=== PATIENT | female | born 1955 | race Caucasian/White ===

== ENCOUNTER 2021-10-04 13:13 | Outpatient (CLI) | payer MEDICARE ==
[2021-10-04 15:31] LABS: Hemoglobin 12.9 g/dL (12.0-15.5); Mean Corpuscular HGB CONC 33.7 g/dL (32.0-36.0); Mean Corpuscular Hemoglobin 31.4 pg (27.0-33.0); Mean Corpuscular Volume 93.2 fl (81.6-98.3); Mean Platelet Volume 9.3 fl (7.4-10.4); Platelet Count 246 10x3/uL (150-450); RBC Distribution Width 12.5 % (11.5-14.5); Red Blood Cell (RBC) Count 4.11 10x6/uL (3.90-5.03); White Blood Cell (WBC) Count 6.9 10x3/uL (3.5-10.5)
[2021-10-04 15:40] LABS: INR-International Normal Ratio 0.9; PTT 27.4 sec (22.0-33.0); Prothrombin Time 10.5 sec (9.5-12.1)
[2021-10-04 15:45] LABS: Anion Gap 14 mmol/L (10-20); BUN (Urea Nitrogen) 21 mg/dL (9.8-20.1); Calc. Creatinine Clearance 0 mL/min (70-130); Carbon Dioxide 27 mmol/L (23-31); Chloride 104 mmol/L (98-107); Glucose 90 mg/dL (80-115); Potassium 3.9 mmol/L (3.5-5.1); Sodium 141 mmol/L (136-145)
[2021-10-05 00:46] LABS: SARS-CoV-2 PCR by NAA Not Detected (NotDetected)
== END 2021-10-04 13:14 | disposition home or self-care (01) ==
LOC: CSHLAB 13:13
PROVIDERS: ATTEND Orthopaedic Surgery
DX: Z01.818 Encounter for other preprocedural examination (principal); Z20.822 Contact with and (suspected) exposure to COVID-19; Z98.890 Other specified postprocedural states; Z86.19 Personal history of other infectious and parasitic diseases; Z96.652 Presence of left artificial knee joint
CPT/HCPCS: 80048; 85027; 85610; 85730; 87081; 93005; 93010; U0003; U0005

== ENCOUNTER 2021-10-07 06:16 | Inpatient (IN) | payer MEDICARE ==
[2021-10-05 13:31] VITALS: BMI 39.4
[2021-10-07] MEDS ORDERED: Midazolam HCl 2 mg/2 ml Vial ONE (06:26)
[2021-10-07] MEDS ORDERED: Fentanyl 100 MCG/2 ML VIAL ONE ×3 (06:26→11:39)
[2021-10-07] MEDS ORDERED: Lidocaine 1% PF 5 ML VIAL ONE ×2 (06:27→06:58)
[2021-10-07] MEDS ORDERED: PROPOFOL 20 ML ONE (06:27)
[2021-10-07] MEDS ORDERED: Lidocaine 1% MPF 2 ML VIAL ONE (06:27)
[2021-10-07] MEDS ORDERED: Lidocaine 1% w/Epinephrine 1:100K 30 ML VIAL ONE (06:50)
[2021-10-07] MEDS ORDERED: Neomycin-Polymyxin 1 ML AMP ONE (06:51)
[2021-10-07] MEDS ORDERED: Ropivacaine 0.5% HCl/PF (150 MG/30 ML VIAL) ONE (06:57)
[2021-10-07] MEDS ORDERED: Ropivacaine 0.2% HCl/PF 20 ML ONE ×2 (06:58→07:08)
[2021-10-07] MEDS ORDERED: Ketorolac Tromethamine 30 MG/ML VIAL ONE (07:20)
[2021-10-07] MEDS ORDERED: EPINEPHrine 1 MG/ML AMP ONE (07:20)
[2021-10-07] MEDS ORDERED: Tranexamic Acid 1,000 MG/10 ML VIAL ONE (07:21)
[2021-10-07] MEDS ORDERED: Ropivacaine 0.2% HCl/PF 40 ML ONE (07:21)
[2021-10-07] MEDS ORDERED: diphenhydrAMINE 25 MG CAP PO PRN (07:27)
[2021-10-07] MEDS ORDERED: Ondansetron PF 4 MG/2 ML Vial IVP PRN ×2 (07:27→09:30)
[2021-10-07] MEDS ORDERED: Promethazine HCl 25 MG/ML VIAL IM PRN ×2 (07:27→09:30)
[2021-10-07] MEDS ORDERED: HYDROcodone/Acetaminophen 10/325 mg Tablet PO PRN (07:27)
[2021-10-07] MEDS ORDERED: oxyCODONE/Acetaminophen 5 mg/325 mg Tablet PO PRN ×2 (07:32)
[2021-10-07] MEDS ORDERED: Rocuronium Bromide 10 MG/ML (10ML VIAL) ONE (07:58)
[2021-10-07] MEDS ORDERED: Ondansetron PF 4 MG/2 ML Vial ONE ×2 (08:34→11:39)
[2021-10-07] MEDS ORDERED: Dexamethasone 20 MG/5 ML VIAL ONE (08:34)
[2021-10-07] MEDS ORDERED: Aspirin 81 mg Enteric Coated Tablet PO SCH (09:00)
[2021-10-07] MEDS ORDERED: Zolpidem Tartrate 5 MG TAB PO PRN (09:30)
[2021-10-07] MEDS ORDERED: oxyCODONE 5 MG TAB PO PRN ×2 (09:35→09:39)
[2021-10-07] MEDS ORDERED: Acetaminophen 325 MG TAB PO PRN ×2 (09:38→09:40)
[2021-10-07] MEDS: Ferrous Gluconate 324 MG TAB PO SCH ×2 (09:52→21:49)
[2021-10-07] MEDS: Enoxaparin Sodium 40 MG/0.4 ML SYRINGE SC SCH (09:52)
[2021-10-07] MEDS: Senokot S 8.6-50 MG TAB PO SCH ×2 (09:53→21:49)
[2021-10-07] MEDS: Multivitamin W/ Minerals 1 TAB PO SCH (09:53)
[2021-10-07] MEDS ORDERED: Glycopyrrolate 0.2 MG/ML 5 ML SYRINGE ONE (11:10)
[2021-10-07] MEDS: Ketorolac Tromethamine 30 MG/ML VIAL IVP SCH ×2 (14:44→21:21)
[2021-10-07] MEDS ORDERED: VANCOMYCIN 2 GRAM/400 ML BAG 2 GM in Premix Bag 1 BAG IVPB SCH (19:30)
[2021-10-07] MEDS: Acetaminophen 325 MG TAB PO PRN (21:21)
[2021-10-07] MEDS: Famotidine 20 MG TAB PO SCH (21:22)
[2021-10-07] MEDS: cloNIDine 0.1 MG TAB PO SCH (21:23)
[2021-10-08] MEDS: Ropivacaine HCl/PF 200 MG in Premix Bag 1 BAG NERVE BLCK SCH ×2 (04:18→21:20)
[2021-10-08 04:27] LABS: Hemoglobin 9.3 g/dL (12.0-15.5); Mean Corpuscular HGB CONC 34.2 g/dL (32.0-36.0); Mean Corpuscular Hemoglobin 31.4 pg (27.0-33.0); Mean Corpuscular Volume 91.9 fl (81.6-98.3); Mean Platelet Volume 8.6 fl (7.4-10.4); Platelet Count 152 10x3/uL (150-450); RBC Distribution Width 12.8 % (11.5-14.5); Red Blood Cell (RBC) Count 2.96 10x6/uL (3.90-5.03); White Blood Cell (WBC) Count 7.7 10x3/uL (3.5-10.5)
[2021-10-08] MEDS: Ketorolac Tromethamine 30 MG/ML VIAL IVP SCH ×3 (06:12→21:07)
[2021-10-08] MEDS: Senokot S 8.6-50 MG TAB PO SCH ×2 (09:55→21:10)
[2021-10-08] MEDS: Famotidine 20 MG TAB PO SCH ×2 (09:57→21:09)
[2021-10-08] MEDS: Multivitamin W/ Minerals 1 TAB PO SCH (09:57)
[2021-10-08] MEDS: cloNIDine 0.1 MG TAB PO SCH ×2 (09:57→21:09)
[2021-10-08] MEDS: Hydrochlorothiazide 25 MG TAB PO SCH (09:58)
[2021-10-08] MEDS: Ferrous Gluconate 324 MG TAB PO SCH ×2 (09:59→21:08)
[2021-10-08] MEDS: Enoxaparin Sodium 40 MG/0.4 ML SYRINGE SC SCH (10:01)
[2021-10-08] MEDS: Losartan Potassium 50 MG TAB PO SCH (10:08)
[2021-10-08] MEDS: Zolpidem Tartrate 5 MG TAB PO PRN (21:11)
[2021-10-09 06:04] LABS: Anion Gap 13 mmol/L (10-20); BUN (Urea Nitrogen) 16 mg/dL (9.8-20.1); Calc. Creatinine Clearance 130 mL/min (70-130); Calcium 8.7 mg/dL (7.8-10.44); Carbon Dioxide 25 mmol/L (23-31); Chloride 107 mmol/L (98-107); Glucose 115 mg/dL (80-115); Potassium 3.9 mmol/L (3.5-5.1); Sodium 141 mmol/L (136-145)
[2021-10-09 06:13] LABS: Hemoglobin 8.9 g/dL (12.0-15.5); Mean Corpuscular HGB CONC 33.5 g/dL (32.0-36.0); Mean Corpuscular Hemoglobin 31.3 pg (27.0-33.0); Mean Corpuscular Volume 93.7 fl (81.6-98.3); Mean Platelet Volume 8.7 fl (7.4-10.4); Platelet Count 146 10x3/uL (150-450); RBC Distribution Width 12.5 % (11.5-14.5); Red Blood Cell (RBC) Count 2.84 10x6/uL (3.90-5.03); White Blood Cell (WBC) Count 7.3 10x3/uL (3.5-10.5)
[2021-10-09] MEDS: Ketorolac Tromethamine 30 MG/ML VIAL IVP SCH ×2 (06:20→16:12)
[2021-10-09] MEDS: Senokot S 8.6-50 MG TAB PO SCH ×2 (08:07→21:23)
[2021-10-09] MEDS: Hydrochlorothiazide 25 MG TAB PO SCH (10:37)
[2021-10-09] MEDS: Losartan Potassium 50 MG TAB PO SCH (10:37)
[2021-10-09] MEDS: Famotidine 20 MG TAB PO SCH ×2 (10:37→21:16)
[2021-10-09] MEDS: Enoxaparin Sodium 40 MG/0.4 ML SYRINGE SC SCH (10:38)
[2021-10-09] MEDS: cloNIDine 0.1 MG TAB PO SCH ×2 (10:38→21:17)
[2021-10-09] MEDS: Multivitamin W/ Minerals 1 TAB PO SCH (10:38)
[2021-10-09] MEDS: Ferrous Gluconate 324 MG TAB PO SCH ×2 (10:38→21:23)
[2021-10-09] MEDS: Cephalexin 500 MG CAP PO SCH (21:16)
[2021-10-09] MEDS: Rifampin 300 MG CAP PO SCH (21:16)
[2021-10-09] MEDS: Zolpidem Tartrate 5 MG TAB PO PRN (21:17)
[2021-10-09] MEDS: Acetaminophen 325 MG TAB PO PRN (21:17)
[2021-10-10] MEDS: Ropivacaine HCl/PF 200 MG in Premix Bag 1 BAG NERVE BLCK SCH (07:20)
[2021-10-10 09:24] LABS: Hemoglobin 10.3 g/dL (12.0-15.5); Mean Corpuscular HGB CONC 33.3 g/dL (32.0-36.0); Mean Corpuscular Volume 93.1 fl (81.6-98.3); Mean Platelet Volume 8.8 fl (7.4-10.4); Platelet Count 195 10x3/uL (150-450); RBC Distribution Width 12.5 % (11.5-14.5); Red Blood Cell (RBC) Count 3.32 10x6/uL (3.90-5.03)
[2021-10-10] MEDS: Senokot S 8.6-50 MG TAB PO SCH ×2 (11:28→21:06)
[2021-10-10] MEDS: cloNIDine 0.1 MG TAB PO SCH ×2 (11:29→21:07)
[2021-10-10] MEDS: Rifampin 300 MG CAP PO SCH ×2 (11:29→21:06)
[2021-10-10] MEDS: Ferrous Gluconate 324 MG TAB PO SCH ×2 (11:30→21:07)
[2021-10-10] MEDS: Hydrochlorothiazide 25 MG TAB PO SCH (11:30)
[2021-10-10] MEDS: Famotidine 20 MG TAB PO SCH ×2 (11:30→21:07)
[2021-10-10] MEDS: Multivitamin W/ Minerals 1 TAB PO SCH (11:30)
[2021-10-10] MEDS: Losartan Potassium 50 MG TAB PO SCH (11:30)
[2021-10-10] MEDS: Enoxaparin Sodium 40 MG/0.4 ML SYRINGE SC SCH (11:31)
[2021-10-10] MEDS: Cephalexin 500 MG CAP PO SCH ×2 (11:31→21:07)
[2021-10-10] MEDS: Zolpidem Tartrate 5 MG TAB PO PRN (21:07)
[2021-10-11 04:40] LABS: Hemoglobin 8.7 g/dL (12.0-15.5); Mean Corpuscular HGB CONC 33.5 g/dL (32.0-36.0); Mean Corpuscular Hemoglobin 31.1 pg (27.0-33.0); Mean Corpuscular Volume 92.9 fl (81.6-98.3); Platelet Count 165 10x3/uL (150-450); RBC Distribution Width 12.4 % (11.5-14.5); White Blood Cell (WBC) Count 6.5 10x3/uL (3.5-10.5)
[2021-10-11] MEDS: Ferrous Gluconate 324 MG TAB PO SCH (11:41)
[2021-10-11] MEDS: Cephalexin 500 MG CAP PO SCH (11:41)
[2021-10-11] MEDS: Famotidine 20 MG TAB PO SCH (11:42)
[2021-10-11] MEDS: Multivitamin W/ Minerals 1 TAB PO SCH (11:42)
[2021-10-11] MEDS: Senokot S 8.6-50 MG TAB PO SCH ×2 (11:43→11:55)
[2021-10-11] MEDS: cloNIDine 0.1 MG TAB PO SCH (11:43)
[2021-10-11] MEDS: Hydrochlorothiazide 25 MG TAB PO SCH (11:44)
[2021-10-11] MEDS: Rifampin 300 MG CAP PO SCH (11:44)
[2021-10-11] MEDS: Losartan Potassium 50 MG TAB PO SCH (11:44)
[2021-10-11] MEDS: Enoxaparin Sodium 40 MG/0.4 ML SYRINGE SC SCH (11:45)
[2021-10-11 21:26] VITALS: BP 134/63; TEMP 98.6
[2021-10-12 14:14] LABS: Fungus Stain Final report (.)
== END 2021-10-11 17:52 | disposition home or self-care (01) | DRG 468 ==
LOC: CSHHOSPICE 06:16 → UNDOADMIN 06:16 → CSHHOSPICE 09:14 → CSHTELE 09:14 → EDSTATUS 12:00 → CSHHOSPICE 10-08 13:44 → CSHTELE 10-08 13:44
PROVIDERS: ADMIT Orthopaedic Surgery; ATTEND Internal Medicine
PROC: 0SRD0J9 Replacement of Left Knee Joint with Synthetic Substitute, Cemented, Open Approach (ICD-10-PCS; principal; 2021-10-07)
PROC: 0SPD0EZ Removal of Articulating Spacer from Left Knee Joint, Open Approach (ICD-10-PCS; 2021-10-07)
DX: Z47.1 Aftercare following joint replacement surgery (principal); K21.9 Gastro-esophageal reflux disease without esophagitis; I10 Essential (primary) hypertension; K58.9 Irritable bowel syndrome, unspecified; Z20.822 Contact with and (suspected) exposure to COVID-19; F41.9 Anxiety disorder, unspecified; Z96.652 Presence of left artificial knee joint; Z91.048 Other nonmedicinal substance allergy status; Z88.6 Allergy status to analgesic agent; Z79.899 Other long term (current) drug therapy; Z90.49 Acquired absence of other specified parts of digestive tract; Z90.710 Acquired absence of both cervix and uterus; Z87.891 Personal history of nicotine dependence; Z01.818 Encounter for other preprocedural examination
CPT/HCPCS: 36415; 36416; 80048; 85027; 85610; 85730; 87070; 87081; 87102; 87205; 87206; 88305; 88331; 93005; J0171; J0690; J0735; J1100; J1650; J1885; J2250; J2405; J2704; J2795; J3010; J3370; U0003; U0005